=== PATIENT | female | born 1955 | race Caucasian/White ===

== ENCOUNTER 2017-09-25 09:43 | Outpatient (CLI) | payer OTHER ==
[2017-09-25 10:46] LABS: ALT (SGPT) 13 U/L (8-55); AST (SGOT) 12 U/L (5-34); Albumin 4.4 g/dL (3.5-5.0); Alkaline Phosphatase 82 U/L (40-150); Anion Gap 15 mmol/L (10-20); BUN (Urea Nitrogen) 13 mg/dL (9.8-20.1); Calc. Creatinine Clearance 0 mL/min (70-130); Calcium 9.6 mg/dL (7.8-10.44); Carbon Dioxide 24 mmol/L (22-29); Cardiac Risk 3.5 (Less than 4.5); Chloride 107 mmol/L (98-107); Cholesterol 239 mg/dl (< 200 Desired); Estimated GFR-MDRD 67; Globulin 2.1 g/dL (2.4-3.5); Glucose 95 mg/dL (70-105); HDL Cholesterol 68 mg/dL (>60 Neg Risk); LDL Cholesterol, Calculated 153 mg/dL; Potassium 4.4 mmol/L (3.5-5.1); Protein, Total 6.5 g/dL (6.0-8.3); Sodium 142 mmol/L (136-145); Triglycerides 89 mg/dL (Less than 150)
[2017-09-25 11:03] LABS: Thyroid Stimulating Hormone 0.7386 uIU/mL (0.35-4.94)
[2017-09-25 18:03] LABS: Free T4 (Free Thyroxine) 1.14 ng/dL (0.70-1.48); Vitamin D, 25 Hydroxy 34.5 ng/ml (> 30.0)
== END 2017-09-25 09:44 | disposition home or self-care (01) ==
LOC: MADLAB 09:43
PROVIDERS: ATTEND Family Medicine
DX: Z12.11 Encounter for screening for malignant neoplasm of colon (principal); E72.11 Homocystinuria; E55.9 Vitamin D deficiency, unspecified; N18.9 Chronic kidney disease, unspecified; E03.9 Hypothyroidism, unspecified; E78.5 Hyperlipidemia, unspecified
CPT/HCPCS: 36415; 80053; 80061; 82306; 83090; 84439; 84443

== ENCOUNTER 2020-06-22 13:26 | Outpatient (CLI) | payer OTHER | END 2020-06-22 13:27 | disposition home or self-care (01) | LOC: MADLAB 13:26 | PROVIDERS: ATTEND Family Medicine | DX: Z11.59 Encounter for screening for other viral diseases (principal); E78.5 Hyperlipidemia, unspecified; E03.9 Hypothyroidism, unspecified; E72.11 Homocystinuria; E55.9 Vitamin D deficiency, unspecified; N18.9 Chronic kidney disease, unspecified; Z76.89 Persons encountering health services in other specified circumstances | CPT/HCPCS: 82274 ==